=== PATIENT | male | born 1945 | race Caucasian/White ===

== ENCOUNTER → 2016-04-02 | Outpatient (CLI) | payer OTHER | LOC: BHFA 09:00 | PROVIDERS: ATTEND Internal Medicine Cardiovascular Disease | DX: I25.10 Atherosclerotic heart disease of native coronary artery without angina pectoris (principal); E78.5 Hyperlipidemia, unspecified | CPT/HCPCS: 78452; 93017; A9500 ==

== ENCOUNTER → 2016-08-29 | Outpatient (CLI) | payer OTHER | LOC: FIMAGING 09:52 | PROVIDERS: ATTEND Family Medicine | DX: R91.8 Other nonspecific abnormal finding of lung field (principal) ==

== ENCOUNTER → 2017-01-29 | Outpatient (CLI) | payer OTHER | LOC: FIMAGING 14:14 | PROVIDERS: ATTEND Family Medicine | DX: R93.8 Abnormal findings on diagnostic imaging of other specified body structures (principal) ==

== ENCOUNTER → 2017-08-18 | Outpatient (CLI) | payer OTHER ==
[~2017-08-18] MED LIST: IOPAMIDOL (ISOVUE-370) 150 ML BTL IV ONE
== END ==
LOC: FIMAGING 09:31
PROVIDERS: ATTEND Internal Medicine Cardiovascular Disease
DX: R94.39 Abnormal result of other cardiovascular function study (principal); I25.10 Atherosclerotic heart disease of native coronary artery without angina pectoris
CPT/HCPCS: 75574; Q9967

== ENCOUNTER 2017-09-21 07:34 | Inpatient (IN) | payer OTHER ==
[2017-09-21] MEDS ORDERED: FAMOTIDINE 20 MG TAB PO ONE (07:39)
[2017-09-21] MEDS ORDERED: ASPIRIN EC 325 MG TAB PO ONE (07:39)
[2017-09-21] MEDS ORDERED: DIAZEPAM 5 MG TAB PO ONE (07:39)
[2017-09-21] MEDS ORDERED: diphenhydrAMINE 25 MG CAP PO ONE (07:39)
[2017-09-21] MEDS ORDERED: NS 1,000 ML IV ONE (07:39)
--- NOTE | 2017-09-21 07:53 | CPEKG ---
Heart Rate: 49 RR Interval: 1224 P-R Interval: 180 QRSD Interval: 86 QT Interval: 452 QTC Interval: 409 P [place]: 38 QRS [place]: 3 T Wave [place]: 44 EKG Severity - OTHERWISE NORMAL ECG - EKG Impression: SINUS BRADYCARDIA Electronically Signed By: Isaak Levin 23-Sep-2017 07:27:06
[2017-09-21 08:05] LABS: PLATELET COUNT 219 10^3/uL (150-400)
[2017-09-21] MEDS ORDERED: fentaNYL 100 MCG/2 ML INJ ONE (08:19)
[2017-09-21] MEDS ORDERED: LIDOCAINE 1% 300 MG/30 ML SDV ONE (08:19)
[2017-09-21] MEDS ORDERED: VERAPAMIL 5 MG/2 ML VIAL ONE (08:20)
[2017-09-21] MEDS ORDERED: HEPARIN 10,000 UNIT/10 ML MDV (1,000 UNIT/ML) ONE (08:20)
[2017-09-21] MEDS ORDERED: IOPAMIDOL (ISOVUE-370) 150 ML BTL IV ONE (08:20)
[2017-09-21] MEDS ORDERED: MIDAZOLAM 2 MG/2 ML VIAL ONE (08:20)
[2017-09-21 08:27] LABS: INR 0.93 (0.83-1.16); PROTIME(PATIENT) 12.7 SEC (12.0-15.0)
--- NOTE | 2017-09-21 08:38 | PDPROPOC ---
Sedation Plan of Care Sedation Plan of Care: vital signs stable, mental status noted, patient educated of risks, benefits, alternatives, patient can tolerate sedation ASA Classification: ASA 2 Planned drugs: fentanyl, midazolam Mallampati Score: Class 1 Mallampati Reference Image: Patient passed 3-3-2 rule?: Yes
--- NOTE | 2017-09-21 08:38 | PDHPUP ---
History & Physical Update H&P update statement: This history and physical update is based on an assessment of the patient which was completed after admission or registration (within 24 hours), but prior to the surgery/procedure. H&P update: H&P reviewed & patient examined, no change in patient's condition since H&P completed
[2017-09-21] MEDS ORDERED: NITROGLYCERIN 0.4 MG BTL SL ONE (09:12)
[2017-09-21] MEDS ORDERED: NITROGLYCERIN 1,500 MCG/15 ML VIAL MISC ONE (09:20)
[2017-09-21] MEDS ORDERED: EPINEPHrine 1 MG/10 ML SYR IVP ONE (09:20)
[2017-09-21] MEDS ORDERED: LORazepam 2 MG/ML INJ IVP PRN (09:36)
--- NOTE | 2017-09-21 09:44 | PDDXCAT ---
Diagnostic Cath Note - . Date: 09/21/17 Termite Treater Helper: Rohith Indication: High-risk criteria on noninvasive testing (choose option below) High-risk criteria on non-invasive testing: severe exercise left ventricular dysfunction (exercise LVEF<35%) - Procedure Access: right wrist Procedure: left heart catheterization, coronary angiography, other (IVUS) - Materials Left Heart Cath size: 5F Left Heart Cath materials: JL4.0, pigtail, other (TIGER) - Findings-Left Heart Catheterization LM: 90% proximal slit like stenosis. LAD: diffuse 20% narrowing. No focal stenosis LCX: Diffuse mild calcific atheroma RCA: 20% Mid RCA. Dominant EDP: 15 mmhg LVEF: 60 Wall motion: normal Complications: transient occlusion of OM post Ultrasound Estimated blood loss: <50ml Closure method: TR Band Assessment: Critical LM disease with procedural occlusion of OM. Plan: Heparin. Cabg prior to discharge. Intervention: After review of the diagnostic angiogram left main stenosis was indeterminate in some views. Patient's ACT was confirmed greater than 200. Using a 5 [place] JL4 guiding catheter left main coronary selectively intubated. Using a 0.014 luge wire the left main was crossed and the wire placed in the distal obtuse marginal branch. Intravascular ultrasound was slow pullback was performed revealing a slit like stenosis of greater than 90% at the ostium of the left main. This is confirmed visually. After withdrawing the wire patient's ST segments elevated. Angiogram revealed JAMES grade 0 flow in the obtuse marginal branch. Patient had been administered a sublingual nitroglycerin sublingually. With withdrawal of the catheter from the left main ostium ST segments resolved. Left main was reengaged revealing JAMES grade 3 flow. Patient remained hemodynamically stable. Ventriculogram was performed. He is taken to recovery for continued care and surgical consultation. Conclusions critical slit like left main stenosis of greater than 90%. Patient Problems: Problems Problem Status Onset Coronary artery disease Acute
[2017-09-21] MEDS ORDERED: NS 1,000 ML IV SCH (09:45)
[2017-09-21] MEDS ORDERED: METOPROLOL SUCCINATE XR 25 MG TAB PO SCH (09:45)
[2017-09-21] MEDS ORDERED: ATORVASTATIN CALCIUM 40 MG TAB PO SCH ×2 (09:45→21:00)
--- NOTE | 2017-09-21 12:17 | GCON ---
[f rep st] CONSULTATION DATE OF CONSULTATION: 09/21/2017 REFERRING PHYSICIAN: Dr. Blancas REQUESTING PHYSICIAN: Dr. Newberry; with the patient's permission. IMPRESSION: 1. Balanced ischemia with severe left main and two-vessel disease with preserved left ventricular fu nction. 2. Mild chronic ethanol use. 3. Hyperlipidemia. 4. Nephrolithiasis. RECOMMENDATIONS: This gentleman had marked ST-segment changes during catheterization during injectio n of the circumflex; and, for that reason, given his tight ostial left main stenosis and lack of symp toms, he is being and admitted and placed on heparin for subsequent surgical intervention. Medical h istory is as stated above. I advised him that his risk for stroke, bleeding, infection, heart attack , and were all less than 1%. I did advise him I would likely use 2 internal mammary arteries a nd 1 piece of vein graft. Need for transfusion was around 5%, and risks associated with transfusion were reviewed at length. CHIEF COMPLAINT: 71-year-old gentleman who is quite active, but has a high calcium score of 13.43. He also has dyslipidemia. During his annual followup, he denied any symptoms. Noninvasive testing w as nondiagnostic without evidence of ischemia. However, due to concern for his high calcium score, d iagnostic left heart cath was encouraged. He underwent diagnostic cath today at which time the circu mflex became hypoperfused with marked ST-segment elevation. He is noted to have left main and proxim al LAD and circumflex disease. He was placed on heparin. The EKGs improved, and he was stabilized b eing admitted for urgent coronary artery revascularization. MEDICAL HISTORY: As stated. PREVIOUS SURGERIES: Include angiogram, colonoscopy, hamstring repair, and tooth implantation. MEDICATIONS ON ADMISSION: Aspirin, heparin, atorvastatin, fish oil, losartan, multivitamin, and saw palmetto oil. ALLERGIES: He has no known allergies. SOCIAL HISTORY: He drinks 1-2 glasses of wine per day on a regular basis. He has never had alcohol withdrawal or issues related to substance abuse. He does smoke occasional marijuana. He is . He has no children. He is a remote cigarette abuser. REVIEW OF SYSTEMS: At the present time, all 10 systems were interrogated and were unremarkable. PHYSICAL EXAMINATION: GENERAL: Well-developed, 71-year-old gentleman who appears markedly younger t rai stated age. He is accompanied by his . Very pleasant, well informed. HEENT: Normocephalic . PERRLA. EOMI. NECK: Without bruit, adenopathy or thyromegaly. HEART: Rate is regular without murmur. LUNGS: Clear. ABDOMEN: Soft, nontender. Bowel sounds are active. Femoral and pedal puls es are 2+. No edema. No varicosities. RECTAL AND GENITAL: Deferred. Please see chart for labs and details. /[id number]/MODL
--- NOTE | 2017-09-21 12:17 | CPEKG ---
Heart Rate: 34 RR Interval: 1765 P-R Interval: 184 QRSD Interval: 78 QT Interval: 504 QTC Interval: 379 P [place]: 35 QRS [place]: -1 T Wave [place]: 33 EKG Severity - OTHERWISE NORMAL ECG - EKG Impression: SINUS BRADYCARDIA Electronically Signed By: Isaak Levin 23-Sep-2017 07:27:12
--- NOTE | 2017-09-21 12:23 | ECHO ---
[email or web address] [address] Main: [phone] Fax: Transthoracic Echocardiogram Name: KARLI ADAMS MR#: [id number] Study Date: 09/21/2017 Study Time: 10:57 AM Date of : 1945 Age: 71 year(s) Height: 167.6 cm (66 in.) Weight: 74.39 kg (164 lb.) BSA: 1.84 m2 Gender: Male Examination: Echo Indication: CVC Image Quality: Contrast: Requested by: Galo Newberry BP: 89 mmHg/59 mmHg Heart Rate: Rhythm: Indication: CVC Procedure Staff Dynamometer Repairer: Caden Bonilla RDCS Reading Physician: Galo Newberry MD Requesting Provider: Conclusions: Normal study Measurements: Chambers Valvular Assessment AV/MV Valvular Assessment TV/PV Normal Normal Normal Name Value Range Name Value Range Name Value Range Ao Jasmine (MM): 3.1 cm (2.2 cm-3.7 AV Vmax: 1.17 m/s (1 m/s-1.7 PV Vmax: 0.94 m/s (0.6 m/s-0.9 cm) m/s) m/s) IVSd (2D): 0.8 cm (0.6 cm-1.1 AV maxP mmHg ( - ) PV PGmax: 4 mmHg ( - ) cm) LVOT Vmax: 0.90 m/s (0.7 m/s-1.1 LVDd (2D): 4.7 cm (4.2 cm-5.9 m/s) cm) MV E Vmax: 0.40 m/s ( - ) LVDs (2D): 2.7 cm (2.1 cm-4 MV A Vmax: 0.62 m/s ( - ) cm) MV E/A: 0.65 ( - ) LVPWd (2D): 1.1 cm (0.6 cm-1 cm) LVEF (2D): 74 (>=54 %) Continued Measurements: Chambers Valvular Assessment AV/MV Name Value Name Value LADs Lon.9 cm MV E' Septal: 0.08 m/s LA Area: 15.6 cm2 MV E/E' Septal: 5.20 LA Volume: 38 ml MV E/E' Lateral: 3.80 LA Volume Index: 20.7 ml/m2 Findings: Left Ventricle: Patient: KARLI ADAMS Study Date: 09/21/2017 Page 1 of 2 10:57 AM Normal size left ventricle. No LV hypertrophy. Normal global systolic LV function. EF is 74 %. No regional wall motion abnormality. Normal diastolic LV function. Right Ventricle: Normal size right ventricle. Normal RV function. Left Atrium: The left atrium is normal in size. Right Atrium: The right atrium is normal in size. Mitral Valve: The mitral valve is normal in appearance and function. Trivial mitral valve regurgitation. Aortic Valve: The aortic valve is normal in appearance and function. The aortic valve is tri-leaflet. Tricuspid Valve: The tricuspid valve is normal in appearance and function. Pulmonic Valve: The pulmonic valve is normal in appearance and function. Aorta: The aorta is normal. (No Signature Object) Patient: KARLI ADAMS Study Date: 09/21/2017 Page 2 of 2 10:57 AM [id number]
--- NOTE | 2017-09-21 15:59 | PDMN ---
Medical Necessity Medical necessity: Pt meets IP criteria per MD; est los >2 mn for eval/tx of critical LM disease w/procedural occlusion of OM s/p cardiac cath; admit for urgent surgical intervention & further monitoring; per procedure note & order
[2017-09-21] MEDS ORDERED: CHLORHEXIDINE GLUC HIBICLENS 118 ML BTL TP SCH (21:00)
[2017-09-21] MEDS ORDERED: LOSARTAN POTASSIUM 25 MG TAB PO SCH (21:00)
[2017-09-21] MEDS: ASPIRIN 81 MG CHEWABLE TAB PO SCH (21:20)
[2017-09-21] MEDS: SENNOSIDES/DOCUSATE SODIUM TAB PO SCH (21:20)
[2017-09-21] MEDS: MUPIROCIN 2% 22 GM OINT NS SCH (21:21)
[2017-09-22] MEDS ORDERED: niCARdipine/NACL 200 ML IV ONE (06:00)
[2017-09-22] MEDS ORDERED: INSULIN REGULAR HUMAN 100 UNIT in NS 100 ML IV ONE (06:00)
[2017-09-22] MEDS ORDERED: PHENYLEPHRINE HCL 50 MG in NS 250 ML IV ONE (06:00)
[2017-09-22] MEDS ORDERED: ceFAZolin 2 GM/DEXTROSE 100 ML IV ONE (06:00)
[2017-09-22] MEDS ORDERED: MANNITOL 25% 12.5 GM/50 ML VIAL IVP ONE (06:00)
[2017-09-22] MEDS ORDERED: SODIUM BICARBONATE 20 MEQ, LIDOCAINE 1% 10 ML in NORMOSOL-R 1,000 ML MISC ONE (06:00)
[2017-09-22] MEDS ORDERED: AMINOCAPROIC ACID 5 GM/20 ML VIAL IV ONE (06:00)
[2017-09-22] MEDS ORDERED: CITRATE DEXTROSE SOLN 500 ML BAG MISC ONE (06:00)
[2017-09-22] MEDS ORDERED: VERAPAMIL 5 MG, NITROGLYCERIN 2.5 MG, HEPARIN 500 UNIT, SODIUM BICARBONATE 0.2 MEQ in L... MISC ONE (06:00)
[2017-09-22] MEDS ORDERED: NOREPINEPHRINE BITARTRATE 16 MG in NS 250 ML IV ONE (06:00)
--- NOTE | 2017-09-22 08:54 | CPEKG ---
Heart Rate: 47 RR Interval: 1277 P-R Interval: 200 QRSD Interval: 78 QT Interval: 464 QTC Interval: 411 P [place]: 49 QRS [place]: -2 T Wave [place]: 32 EKG Severity - OTHERWISE NORMAL ECG - EKG Impression: SINUS BRADYCARDIA Electronically Signed By: Isaak Reynoso 24-Sep-2017 08:16:25
[2017-09-22] MEDS ORDERED: ASPIRIN EC 81 MG TAB PO SCH (09:00)
--- NOTE | 2017-09-22 09:58 | SOAPPROG ---
SOAP Progress Note Assessment/Plan: Assessment: Problem list: 1. Severe coronary disease with left main stenosis. Patient angina free overnight with stable hemodynamics. Slight elevation in troponin consistent with no reflow in the obtuse marginal branch during diagnostic angiogram. Preserved LV systolic function by echocardiogram post procedure. Bypass surgery today. 09/22/17 09:56 Subjective: Uneventful night. No chest pain, shortness of breath, PND, orthopnea. Objective: Vital Signs Temp Pulse Resp BP Pulse Ox 36.6 C 44 L 18 110/74 93 09/22/17 07:58 09/22/17 07:58 09/22/17 07:58 09/22/17 07:58 09/22/17 07:58 Laboratory Results 09/21/17 07:58 09/21/17 07:58 09/21/17 09/22/17 09/23/17 05:59 05:59 05:59 Intake Total 100 Balance 100 PT 12.7 SEC (12.0-15.0) 09/21/17 07:58 INR 0.93 (0.83-1.16) 09/21/17 07:58 Laboratory Tests 09/21/17 09/21/17 09/21/17 09:52 13:35 16:24 Troponin I < 0.012 0.061 H 0.048 H 09/21/17 09/22/17 19:28 03:16 Troponin I 0.042 H 0.049 H Physical Exam - Physical Exam General Appearance: alert, no apparent distress EENT: PERRL/EOMI Neck: non-tender, full range of motion Respiratory: chest non-tender, lungs clear Cardiac/Chest: normal peripheral pulses, regular rate, rhythm, No edema, No gallop, No JVD Peripheral Pulses: 1+: carotid (R), carotid (L), femoral (R), femoral (L) Abdomen: normal bowel sounds, non-tender, soft Back: Normal inspection Skin: warm/dry ICD10 Worksheet Patient Problems: Problems Problem Status Onset Coronary artery disease Acute Review of Systems - Review of Systems Constitutional: no symptoms reported EENTM: no symptoms reported Respiratory: no symptoms reported Cardiac: no symptoms reported Gastrointestinal/Abdominal: no symptoms reported Genitourinary: no symptoms Musculoskelatal: no symptoms Skin: no symptoms Neurological: no symptoms Hematologic/Lymphatic: no symptoms reported Immunologic/allergic: no symptoms reported All Other Systems: Reviewed and Negative
[2017-09-22] MEDS ORDERED: PROTAMINE SULFATE 50 MG/5 ML VIAL IVP ONE (10:14)
[2017-09-22] MEDS ORDERED: MILRINONE/DEXTROSE/100 ML BAG IV ONE (10:15)
[2017-09-22] MEDS ORDERED: ALBUMIN 5% 250 ML BOTTLE IV ONE (10:15)
[2017-09-22] MEDS ORDERED: CALCIUM CHLORIDE 1 GM/10 ML INJ ONE (10:15)
[2017-09-22] MEDS ORDERED: NA BICARBONATE 50 MEQ/50 ML VIAL ONE (10:16)
[2017-09-22] MEDS ORDERED: LIDOCAINE 2% 100 MG/5 ML SYR ONE (10:16)
[2017-09-22] MEDS ORDERED: DOPamine/DEXTROSE 400 MG/250 ML BAG IV ONE (10:17)
[2017-09-22] MEDS ORDERED: CITRATE DEXTROSE SOLN 500 ML BAG ONE (10:17)
[2017-09-22] MEDS ORDERED: HEPARIN 10,000 UNIT/10 ML MDV (1,000 UNIT/ML) ONE (10:17)
[2017-09-22] MEDS ORDERED: niCARdipine/NACL/200 ML BAG IV ONE (10:17)
[2017-09-22] MEDS ORDERED: ADENOSINE 6 MG/2 ML VIAL ONE (10:18)
[2017-09-22] MEDS ORDERED: ceFAZolin 1 GM VIAL ONE (10:18)
[2017-09-22] MEDS ORDERED: MAGNESIUM SULFATE 1 GM/2 ML VIAL ONE (10:18)
[2017-09-22] MEDS ORDERED: NITROGLYCERIN/D5W 50 MG/250 ML BOTTLE IV ONE (10:18)
[2017-09-22] MEDS ORDERED: AMIODARONE HCL 150 MG/3 ML VIAL ONE (10:18)
[2017-09-22] MEDS ORDERED: methylPREDNISolone SOD SUCC 1 GM/8 ML VIAL ONE (10:18)
[2017-09-22] MEDS ORDERED: PAPAVERINE HCL 60 MG/2 ML SDV ONE (10:19)
[2017-09-22] MEDS ORDERED: VERAPAMIL 5 MG/2 ML VIAL ONE (10:19)
[2017-09-22] MEDS ORDERED: MINERAL OIL 10 ML VIAL ONE (10:19)
--- NOTE | 2017-09-22 10:45 | ASMTCASEMG ---
Living Arrangements What is your living Answers: With Spouse arrangement? Who do you live with? Type Of Residence What kind of residence do Answers: House you live in? 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 Pt will have bypass surgery today. Pt will most likely d/c with outpatient cardiac rehab. No therapies ordered at this time. CM available for changes. Plan: Independent Date Signed: 09/22/2017 10:44 AM Electronically Signed By:JOSIANE Dolan
[2017-09-22] MEDS ORDERED: LR 1,000 ML IV ONE (12:18)
[2017-09-22] MEDS ORDERED: CEFAZOLIN 2 GM/DEXTROSE/100 ML BAG IV ONE (12:28)
--- NOTE | 2017-09-22 12:54 | PDANEPAE ---
ANE History of Present Illness cab ANE Past Medical History - Cardiovascular History Hx Hypertension: No Hx Arrhythmias: No Hx Chest Pain: No Hx Coronary Artery / Peripheral Vascular Disease: Yes Hx CHF / Valvular Disease: No Hx Palpitations: No - Pulmonary History Hx COPD: No Hx Asthma/Reactive Airway Disease: No Hx Recent Upper Respiratory Infection: No Hx Oxygen in Use at Home: No Hx Sleep Apnea: No Sleep Apnea Screening Result - Last Documented: Positive - Neurologic History Hx Cerebrovascular Accident: No Hx Seizures: No Hx Dementia: No - Endocrine History Hx Diabetes: No Hypothyroid: No Hyperthyroid: No - Renal History Hx Renal Disorders: No Renal History Comment: nephrolithiasis x1 - Liver History Hx Hepatic Disorders: No - Neurological & Psychiatric Hx Hx Neurological and Psychiatric Disorders: No - Cancer History Hx Cancer: No - Congenital Disorder History Hx Congenital Disorders: No - GI History GERD: no Hx Gastrointestinal Disorders: No - Chronic Pain History Chronic Pain: No - Surgical History Prior Surgeries: None ANE Review of Systems Review of systems is: negative Review of Systems: ANE Patient History - Allergies Allergies/Adverse Reactions: No Allergies [NKDA] Allergy (Verified 10/26/14 15:32) - Home Medications Home medications: home medication list seen and reviewed Home Medications: Aspirin [Aspirin 81mg (*)] 81 mg PO HS 09/14/17 [Last Taken Unknown] Atorvastatin Calcium [Lipitor 40 mg (*)] 80 mg PO DAILY 09/14/17 [Last Taken Unknown] Herbals/Supplements -Info Only 1 ea PO DAILY 09/14/17 [Last Taken Unknown] Losartan Potassium [Cozaar 25 mg (*)] 25 mg PO HS 09/14/17 [Last Taken Unknown] Multivitamins [Multivitamin (*)] 1 each PO DAILY 09/14/17 [Last Taken Unknown] [place]-3 Fatty Acids [Fish Oil 1000 mg (*)] 1,000 mg PO DAILY 09/14/17 [Last Taken Unknown] - NPO status NPO Status: no food or drink >8 hours NPO Since - Liquids (Date): 09/21/17 NPO Since - Liquids (Time): 23:45 NPO Since - Solids (Date): 09/21/17 NPO Since - Solids (Time): 23:45 - Smoking Hx Smoking Status: Former smoker ANE Labs/Vital Signs - Labs Result Diagrams: 09/21/17 07:58 09/21/17 07:58 - Vital Signs Blood Pressure: 128/73 Heart Rate: 38 Respiratory Rate: 16 O2 Sat (%): 95 Height: 170 cm Weight: 76.6 kg ANE Physical Exam - Airway Mallampati Score: Class 2 Mouth exam: normal dental/mouth exam - Pulmonary Pulmonary: no respiratory distress - Cardiovascular Cardiovascular: regular rate and rhythym - ASA Status ASA Status: III ANE Anesthesia Plan Anesthesia Plan: general endotracheal anesthesia Lines/Monitors: arterial line, central line, CEDRICK
[2017-09-22] MEDS: MUPIROCIN 2% 22 GM OINT NS SCH ×2 (12:58→21:56)
[2017-09-22] MEDS ORDERED: MIDAZOLAM 2 MG/2 ML VIAL IVP ONE (13:03)
[2017-09-22] MEDS ORDERED: fentaNYL 250 MCG/5 ML INJ ONE ×2 (13:16)
[2017-09-22] MEDS ORDERED: PROPOFOL 200 MG/20 ML VIAL ONE (13:18)
[2017-09-22] MEDS ORDERED: LIDOCAINE 2% 5 ML SDV ONE (13:19)
[2017-09-22] MEDS ORDERED: ROCURONIUM 100 MG/10 ML VIAL ONE (13:21)
[2017-09-22] MEDS ORDERED: LABETALOL HCL 5 MG/ML 20 ML MDV ONE (13:24)
[2017-09-22] MEDS ORDERED: MIDAZOLAM 2 MG/2 ML VIAL ONE ×2 (13:27→14:12)
[2017-09-22] MEDS ORDERED: SUCCINYLCHOLINE CHLORIDE 200 MG/10 ML SYR IVP ONE (14:07)
[2017-09-22] MEDS ORDERED: GLYCOPYRROLATE 0.2 MG/1 ML VIAL ONE ×2 (14:21)
[2017-09-22] MEDS ORDERED: DEXMEDETOMIDINE IN 0.9 % NACL 100 ML IV ONE (17:30)
[2017-09-22] MEDS ORDERED: SUGAMMADEX SODIUM 200 MG/2 ML VIAL IVP ONE (17:38)
[2017-09-22] MEDS ORDERED: LACTULOSE 20 GM/30 ML UDCUP PO PRN (17:55)
[2017-09-22] MEDS ORDERED: SODIUM CL NASAL 45 ML BTL EACHNARE PRN (17:55)
[2017-09-22] MEDS ORDERED: BISACODYL 10 MG SUPP PR PRN (17:55)
[2017-09-22] MEDS ORDERED: METOCLOPRAMIDE 10 MG/2 ML VIAL IVP PRN (17:55)
[2017-09-22] MEDS ORDERED: D50W 25 GM/50 ML SYR IVP PRN (17:55)
[2017-09-22] MEDS ORDERED: ACETAMINOPHEN 325 MG TAB PO PRN (17:55)
[2017-09-22] MEDS ORDERED: ONDANSETRON DISINTEGRATING 4 MG TAB PO PRN (17:55)
[2017-09-22] MEDS ORDERED: PANTOPRAZOLE SODIUM 40 MG VIAL IVP ONE (17:55)
[2017-09-22] MEDS ORDERED: CEPACOL LOZENGE PO PRN (17:55)
[2017-09-22] MEDS ORDERED: MAGNESIUM HYDROXIDE 30 ML UDCUP PO PRN (17:55)
[2017-09-22] MEDS ORDERED: ACETAMINOPHEN 650 MG SUPP PR PRN (17:55)
[2017-09-22] MEDS ORDERED: POLYETHYLENE GLYCOL 3350 17 GM PKT PO PRN (17:55)
[2017-09-22] MEDS ORDERED: MEPERIDINE 25 MG/0.5 ML AMP IVP PRN (17:55)
[2017-09-22] MEDS ORDERED: POTASSIUM Cl (KCl) 50 ML IV PRN (17:55)
[2017-09-22] MEDS ORDERED: INSULIN REGULAR HUMAN 100 UNIT in NS 100 ML IV SCH (18:00)
[2017-09-22] MEDS ORDERED: NS 1,000 ML IV SCH (18:00)
[2017-09-22] MEDS ORDERED: NALOXONE HCL 0.4 MG/ML INJ IVP PRN (18:16)
--- NOTE | 2017-09-22 18:17 | POSTANESTH ---
Post Anesthetic Evaluation Cardiovascular Status: Normal, Stable Respiratory Status: Normal, Stable Level of Consciousness/Mental Status: Can Participate in Eval Pain Control: Adequate, Prn Tx Ordered Nausea/Vomiting Control: Adequate, Prn Tx Ordered Complications Possibly Related to Anesthesia: None Noted
--- NOTE | 2017-09-22 18:21 | CPEKG ---
Heart Rate: 69 RR Interval: 870 P-R Interval: 172 QRSD Interval: 84 QT Interval: 444 QTC Interval: 476 P [place]: 58 QRS [place]: 36 T Wave [place]: 31 EKG Severity - ABNORMAL ECG - EKG Impression: SINUS RHYTHM EKG Impression: LOW VOLTAGE IN FRONTAL LEADS EKG Impression: PROBABLE POSTERIOR INFARCT EKG Impression: BORDERLINE PROLONGED QT INTERVAL Electronically Signed By: Isaak Reynoso 24-Sep-2017 08:15:59
--- NOTE | 2017-09-22 18:27 | GOP ---
[f rep st] OPERATIVE REPORT DATE OF OPERATION: 09/22/2017 SURGEON: Dinesh Andrews DO INTERPRETER AND TRANSLATOR: Ajay. ANESTHESIA: [place]. PREOPERATIVE DIAGNOSIS: Arteriosclerotic heart disease with left main stenosis. POSTOPERATIVE DIAGNOSIS: Arteriosclerotic heart disease with left main stenosis. PROCEDURE PERFORMED: 1. Coronary artery bypass grafting x2 with left internal mammary artery to the mid left anterior manolo cending. 2. Saphenous vein graft with patch enlargement and extended arteriotomy of the circumflex for repair of dissection. FINDINGS: Patient had a temporary occlusion of his circumflex during catheterization in the catheter ization lab with subsequent reperfusion without noted injury. He was kept overnight in the hospital because of ostial left main stenosis and lack of symptoms. He underwent coronary artery revasculariz ation and was consented the following morning. DESCRIPTION OF PROCEDURE: He was brought to the operating room, intubated, and monitoring lines were prepped and draped in sterile classical manner. Sternotomy was performed. The mammary and vein wer e harvested endoscopically. He was heparinized, cannulated. Bypass was begun. A cardioplegic arres t was obtained with antegrade cardioplegia, topical hypothermia, and systemic cooling. Initially, th e circumflex was identified. It was a large vessel measuring 2.6 mm and in the proximal 3rd where it was opened. It then became evident that there was a dissection flap which appeared to spiral for a ways, a centimeter or so, more distally. I then opened the vessel the entire duration of that presum ed dissection and was able to identify the appropriate lumen and reapproximated vein graft, maintaini ng patency, reattaching the intima to the media along the way for approximately 2 cm with vein. This was reinforced at the heel. The proximal anastomosis was then brought off the ascending aorta. We then grafted a good quality mammary to the LAD in the proximal 3rd with no difficulty. It was tacked to the epicardium. The cross-clamp was removed with suction on the ascending aortic vent. Spontane ous cardiac activity was noted to resume. The patient was rewarmed. EKG remained normal. Heparin w as reversed with protamine. The cannula was removed and oversewn. Two ventricular pacing wires, 1 m ediastinal and 1 left drain were placed. The thymic fat and pericardium were closed. Chest was clos ed in standard fashion. The patient was returned to ICU in stable condition. /[id number]/MODL
[2017-09-22] MEDS: SENNOSIDES/DOCUSATE SODIUM TAB PO SCH ×2 (18:38→21:57)
[2017-09-22] MEDS: ALBUMIN 5% 250 ML IV PRN ×2 (19:09→21:54)
[2017-09-22] MEDS: fentaNYL 100 MCG/2 ML INJ IVP PRN ×4 (19:51→22:42)
[2017-09-22] MEDS: ASPIRIN 81 MG CHEWABLE TAB PO SCH (21:56)
[2017-09-22] MEDS: ceFAZolin 2 GM/DEXTROSE 100 ML IV SCH (22:02)
[2017-09-22] MEDS: ONDANSETRON 4 MG/2 ML VIAL IVP PRN (22:46)
[2017-09-22] MEDS: HYDROCODONE/APAP 5/325 TAB PO PRN (23:51)
[2017-09-23] MEDS: fentaNYL 100 MCG/2 ML INJ IVP PRN ×3 (01:07→03:01)
[2017-09-23] MEDS: HYDROCODONE/APAP 5/325 TAB PO PRN ×4 (03:58→17:33)
[2017-09-23 04:47] LABS: PLATELET COUNT 141 10^3/uL (150-400)
--- NOTE | 2017-09-23 06:40 | SOAPPROG ---
SOAP Progress Note Assessment/Plan: POD #1: Urgent CABGx2 (TAMAYO-LAD, SVG-Circ), patch enlargement and extended arteriotomy of circumflex, EVH left thigh CAD/left main CAD/dissected circumflex artery s/p CABGx2 - Transfer to PCU - BB/ASA/Statin when appropriate Acute blood loss anemia - No transfusions needed DVT prophylaxis - SCDs/heparin SQ Subjective: Pain well-controlled, denies SOB. Objective: Vital Signs Temp Pulse Resp BP Pulse Ox 36.8 C 58 L 22 H 114/53 L 95 09/23/17 04:00 09/23/17 06:00 09/23/17 06:00 09/23/17 06:00 09/23/17 06:00 Laboratory Results 09/23/17 03:50 09/23/17 03:50 09/22/17 09/23/17 09/24/17 05:59 05:59 05:59 Intake Total 100 1379 Output Total 1600 Balance 100 -221 PT 12.7 SEC (12.0-15.0) 09/21/17 07:58 INR 0.93 (0.83-1.16) 09/21/17 07:58 Physical Exam - Physical Exam General Appearance: WD/WN, alert, no apparent distress EENT: No scleral icterus (R), No scleral icterus (L) Neck: normal inspection Respiratory: No respiratory distress Cardiac/Chest: regular rate, rhythm Abdomen: non-tender, soft, No distended Skin: normal color, warm/dry Extremities: No pedal edema Neuro/Psych: no motor/sensory deficits, alert, normal mood/affect, oriented x 3 ICD10 Worksheet Patient Problems: Problems Problem Status Onset Acute blood loss anemia Acute Coronary artery disease Acute S/P CABG x 2 Acute
[2017-09-23] MEDS: HEPARIN 5,000 UNIT/0.5 ML INJ SC SCH ×3 (06:42→21:14)
[2017-09-23] MEDS: ceFAZolin 2 GM/DEXTROSE 100 ML IV SCH ×3 (06:42→21:14)
[2017-09-23] MEDS: ONDANSETRON 4 MG/2 ML VIAL IVP PRN (08:58)
[2017-09-23] MEDS: MUPIROCIN 2% 22 GM OINT NS SCH ×2 (09:06→21:15)
[2017-09-23] MEDS: SENNOSIDES/DOCUSATE SODIUM TAB PO SCH ×3 (09:10→21:13)
[2017-09-23] MEDS: ASPIRIN 81 MG CHEWABLE TAB PO SCH (21:34)
[2017-09-23] MEDS: traMADol 50 MG TAB PO PRN (22:36)
[2017-09-24] MEDS: HYDROCODONE/APAP 5/325 TAB PO PRN ×4 (00:42→13:05)
[2017-09-24] MEDS: ceFAZolin 2 GM/DEXTROSE 100 ML IV SCH (05:00)
[2017-09-24] MEDS: HEPARIN 5,000 UNIT/0.5 ML INJ SC SCH ×3 (05:00→21:19)
[2017-09-24 05:06] LABS: PLATELET COUNT 146 10^3/uL (150-400)
--- NOTE | 2017-09-24 06:50 | SOAPPROG ---
SOAP Progress Note Assessment/Plan: Assessment: POD#2 Urgent CABGx2 (TAMAYO-LAD, SVG-Circ), patch enlargement and extended arteriotomy of circumflex, EVH left thigh Sx CAD w preserved LV systolic fx - Critical left main stenosis with procedural occlusion of OM. LCX dissection apparent intraop and repaired with extended venotomy and vein patch. Extubated in the OR. Stable early postop course. Secondary prevention with ASA, BB as allowed by BP, and statin when eating well. Acute expected blood loss anemia - Stable. No transfusions needed. DVT prophylaxis w SCDs/heparin SQ. Plan: Remove TCPW. Consider CT removal later today. Begin gentle diuresis. Start metoprolol tartrate 12.5 mg BID tonight if holding HR > 70. Inc activity as tolerated. Dispo - Anticipate home without services in 2 days. 09/24/17 06:50 Subjective: Sore after prolonged coughing spell last night. Now nervous about IS. Slightly more dyspneic when reclined. Objective: Vital Signs Temp Pulse Resp BP Pulse Ox 36.9 C 79 16 112/72 95 09/24/17 04:00 09/24/17 04:00 09/24/17 04:00 09/24/17 04:00 09/24/17 04:00 Laboratory Results 09/24/17 04:50 09/24/17 04:50 09/23/17 09/24/17 09/25/17 05:59 05:59 05:59 Intake Total 1379 2128.1 Output Total 1600 807 Balance -221 1321.1 PT 12.7 SEC (12.0-15.0) 09/21/17 07:58 INR 0.93 (0.83-1.16) 09/21/17 07:58 HR steadily increasing. Now 70s-80s. STs remain slightly elev. Min suppl O2 req. Dissipating CTOP. Positive fluid balance. +2.5 kg overall. Labs as expected. Physical Exam - Physical Exam General Appearance: alert, no apparent distress Respiratory: crackles (bases), other (blakes x 2 to bulb suction, serosang drainage) Cardiac/Chest: regular rate, rhythm, other (Sternotomy CDI. Vwires intact.) Abdomen: non-tender, soft Skin: warm/dry Extremities: swelling (trace - 1+ dependent), other (LLE venotomy CDI) ICD10 Worksheet Patient Problems: Problems Problem Status Onset Acute blood loss anemia Acute Coronary artery disease Acute S/P CABG x 2 Acute chronic disease mgmt/transitional care Acute
[2017-09-24] MEDS ORDERED: FUROSEMIDE 20 MG/2 ML VIAL IVP ONE (09:00)
[2017-09-24] MEDS: MUPIROCIN 2% 22 GM OINT NS SCH (10:19)
[2017-09-24] MEDS: PANTOPRAZOLE SODIUM 40 MG TAB PO SCH (10:20)
[2017-09-24] MEDS: SENNOSIDES/DOCUSATE SODIUM TAB PO SCH ×2 (10:20→21:16)
--- NOTE | 2017-09-24 11:59 | ASMTCMCOM ---
CM Note CM Note Notes: 09/24/2017 Case Management Note Pt is post op day #2 recovering from a CABG. PT is recommending cardiac outpatient rehab. There are no other identified case management d/c needs. Case Management d/c poc: home with cardiac outpatient rehab. Case Management available if needs change. Date Signed: 09/24/2017 11:58 AM Electronically Signed By:Poornima Guo RN
[2017-09-24] MEDS: traMADol 50 MG TAB PO PRN (15:05)
[2017-09-24] MEDS: ASPIRIN 81 MG CHEWABLE TAB PO SCH (21:16)
[2017-09-24] MEDS: METOPROLOL TARTRATE 25 MG TAB PO SCH (21:18)
[2017-09-25] MEDS: HEPARIN 5,000 UNIT/0.5 ML INJ SC SCH ×3 (05:35→20:37)
--- NOTE | 2017-09-25 06:54 | SOAPPROG ---
SOAP Progress Note Assessment/Plan: POD #3: Urgent CABGx2 (TAMAYO-LAD, SVG-Circ), patch enlargement and extended arteriotomy of circumflex, EVH left thigh CAD/left main CAD/dissected circumflex artery s/p CABGx2 - Transfer to PCU - BB/ASA/Statin when appropriate Acute blood loss anemia - No transfusions needed DVT prophylaxis - SCDs/heparin SQ Disposition - Home Thursday without services Subjective: Feels well. Denies CP/SOB. Objective: Vital Signs Temp Pulse Resp BP Pulse Ox 37.2 C 69 16 114/68 93 09/25/17 05:40 09/25/17 05:40 09/25/17 05:40 09/25/17 05:40 09/25/17 05:40 Laboratory Results 09/24/17 04:50 09/25/17 05:15 09/24/17 09/25/17 09/26/17 05:59 05:59 05:59 Intake Total 2128.1 1340 Output Total 807 2095 Balance 1321.1 -755 PT 12.7 SEC (12.0-15.0) 09/21/17 07:58 INR 0.93 (0.83-1.16) 09/21/17 07:58 Physical Exam - Physical Exam General Appearance: WD/WN, alert, no apparent distress EENT: No scleral icterus (R), No scleral icterus (L) Neck: normal inspection Respiratory: No respiratory distress Cardiac/Chest: regular rate, rhythm Abdomen: non-tender, soft, No distended Skin: normal color, warm/dry Extremities: pedal edema Neuro/Psych: no motor/sensory deficits, alert, normal mood/affect, oriented x 3 ICD10 Worksheet Patient Problems: Problems Problem Status Onset Acute blood loss anemia Acute Coronary artery disease Acute S/P CABG x 2 Acute chronic disease mgmt/transitional care Acute
[2017-09-25] MEDS ORDERED: FUROSEMIDE 20 MG/2 ML VIAL IVP ONE (07:26)
[2017-09-25] MEDS: PANTOPRAZOLE SODIUM 40 MG TAB PO SCH (09:39)
[2017-09-25] MEDS: METOPROLOL TARTRATE 25 MG TAB PO SCH ×2 (09:40→20:36)
[2017-09-25] MEDS: ATORVASTATIN CALCIUM 40 MG TAB PO SCH (09:42)
--- NOTE | 2017-09-25 12:06 | ASMTCMCOM ---
CM Note CM Note Notes: 09/25/2017 Case Management Note Post op day #3. Discussed case with Dr. Andrews. D/C possible tomorrow. Case Management d/c poc: Pt to d/c home with family support and start cardiac outpatient rehab. Case Management to follow. Date Signed: 09/25/2017 12:05 PM Electronically Signed By:Poornima Guo RN
[2017-09-25] MEDS: SENNOSIDES/DOCUSATE SODIUM TAB PO SCH (13:02)
[2017-09-25] MEDS ORDERED: AMIODARONE A.FIB-6HR INFSN (ORDER 2/3) PREMIX IV ONE (16:00)
[2017-09-25] MEDS ORDERED: AMIODARONE A.FIB-LOAD DOSE(ORDER 1/3) PREMIX IV ONE (16:00)
[2017-09-25] MEDS: traMADol 50 MG TAB PO PRN (20:36)
[2017-09-25] MEDS: ASPIRIN 81 MG CHEWABLE TAB PO SCH (20:37)
[2017-09-25] MEDS ORDERED: SENNOSIDES/DOCUSATE SODIUM TAB PO PRN (21:00)
[2017-09-25] MEDS ORDERED: AMIODARONE A.FIB-18HR INFSN (ORDER 3/3) IV ONE (22:00)
[2017-09-26] MEDS: HEPARIN 5,000 UNIT/0.5 ML INJ SC SCH (04:28)
[2017-09-26] MEDS: ATORVASTATIN CALCIUM 40 MG TAB PO SCH (08:06)
[2017-09-26] MEDS: PANTOPRAZOLE SODIUM 40 MG TAB PO SCH (08:06)
[2017-09-26] MEDS: METOPROLOL TARTRATE 25 MG TAB PO SCH (09:43)
--- NOTE | 2017-09-26 11:24 | SOAPPROG ---
SOAP Progress Note Assessment/Plan: POD #4: Urgent CABGx2 (TAMAYO-LAD, SVG-Circ), patch enlargement and extended arteriotomy of circumflex, EVH left thigh CAD/left main CAD/dissected circumflex artery s/p CABGx2 - On ASA, Lipitor and Metoprolol. Postop paroxysmal atrial fibrillation - Resolved. Currently in SR 60's. On Metoprolol. - Initiated Amio 200mg BID and Eliquis x 30 days. Acute blood loss anemia - No transfusions needed Postop hypervolemia - Will discharge on low dose Lasix today. - Instructed patient to take additional Lasix if he gains >5lb over two days while at home. DVT prophylaxis - SCDs/heparin SQ Disposition - Home today Subjective: Patient reports hardly having any pain. He has some mild discomfort under right rib area. Objective: Vital Signs Temp Pulse Resp BP Pulse Ox 36.9 C 76 18 106/65 96 09/26/17 11:14 09/26/17 11:14 09/26/17 11:14 09/26/17 11:14 09/26/17 11:14 Laboratory Results 09/24/17 04:50 09/26/17 04:15 09/25/17 09/26/17 09/27/17 05:59 05:59 05:59 Intake Total 1340 1010 Output Total 2095 5 200 Balance -755 -1035 -200 PT 12.7 SEC (12.0-15.0) 09/21/17 07:58 INR 0.93 (0.83-1.16) 09/21/17 07:58 Physical Exam - Physical Exam General Appearance: WD/WN, alert, no apparent distress Neck: supple Respiratory: lungs clear, decreased breath sounds (L>R), other (No wheezing, rhochi, rales. ) Cardiac/Chest: regular rate, rhythm (No murmurs, rubs, gallops. Sternum stable. Sternotomy c/d/i. ) Abdomen: normal bowel sounds, non-tender, soft Skin: normal color, warm/dry Extremities: other (Warm, mild lower extremity edema) Neuro/Psych: alert, normal mood/affect, oriented x 3 ICD10 Worksheet Patient Problems: Problems Problem Status Onset Acute blood loss anemia Acute Coronary artery disease Acute S/P CABG x 2 Acute chronic disease mgmt/transitional care Acute
[2017-09-26] MEDS ORDERED: APIXABAN 5 MG TAB PO SCH (11:30)
[2017-09-26] MEDS ORDERED: POTASSIUM CL 10 MEQ TAB PO SCH (11:30)
[2017-09-26] MEDS ORDERED: AMIODARONE HCL 200 MG TAB PO SCH (11:30)
[2017-09-26] MEDS ORDERED: FUROSEMIDE 20 MG TAB PO SCH (11:30)
--- NOTE | 2017-09-26 12:21 | PDHOMEO2F ---
Home Oxygen Face to Face Home Orders: I certify that a physician or a nurse practitioner or physician's veterinary assistant technician has had a [id number] encounter with this patient on the date of this order due to the diagnosis listed, which relates to the primary reason the patient requires home oxygen. Alternative treatments have been tried, or considered, and deemed ineffective. It is anticipated that supplemental oxygen will result in improvement with treatment. Home oxygen qualifying diagnosis: respiratory insufficiency Home oxygen secondary diagnosis: atrial fibrillation SpO2 on room air (%): 87 Frequency of home oxygen needed: continuous Home oxygen liters per minute: 1 Home oxygen delivery device: nasal cannula Concentrator: Yes E-tanks for mobility and back up: Yes If ordering portable O2, is the patient mobile in the home?: Yes I certify that, based on these findings, the home oxygen is medically necessary for this patient for the following length of time. Length of time home oxygen needed: 99 years
--- NOTE | 2017-09-26 14:39 | ASMTLACE ---
LACE Length of stay for Answers: 4-6 days current admission Acuity / Level of Answers: Yes Care: Did the patient have an inpatient admission? Comorbidities - select Answers: Coronary Artery Disease all that apply # of Emergency department Answers: 0 visits in the last 6 months Score: 9 Date Signed: 09/26/2017 02:38 PM Electronically Signed By:Parul Cummings LCSW
[2017-09-26 15:48] VITALS: BP 114/71
--- NOTE | 2017-09-26 16:30 | PDDCSUM ---
Discharge Summary Discharge Summary: Patient Name: Isaak Joshua Patient Admission Date: 09/21/2017 Discharge Date: 09/26/2017 Attending Physician: Dinesh Andrews DO Dictated by: Talya Lozada PA-C Condition on Discharge: Stable Discharge Diagnosis: Severe CAD s/p CABG Acute blood loss anemia Dyslipidemia Procedures: 09/22/2017 (Darryl) Urgent CABGx2 (TAMAYO-LAD, SVG-Circ), patch enlargement and extended arteriotomy of circumflex, EVH left thigh HPI: This is a 71yo male with dyslipidemia and high calcium scoring who who was referred for left heart cardiac catheterization Patient developed significant ST-segment changes during catheterization while injecting the circumflex. Patient was also found to have a tight ostial left main stenosis and proximal LAD and circumflex disease, for which he was admitted and placed on Heparin. Patient was referred to CT Surgery for CABG evaluation. Laboratory/Data: Findings- Left Heart Catheterization LM: 90% proximal slit like stenosis LAD: diffuse 20% narrowing. No focal stenosis. LCx: Diffuse mild calcific atheroma RCA: 20% mild RCA. Dominant. EDP: 15 mmHg LVEF 60% Assessment: Critical LM disease with procedural occlusion of OM. 09/24/17 04:50 09/26/17 04:15 Patient ABO/Rh A NEGATIVE 09/21/17 13:35 Hospital Course by Problem List: CAD/left main CAD/dissected circumflex artery s/p CABGx2 - On ASA, Lipitor and Metoprolol. Postop paroxysmal atrial fibrillation - Resolved. Currently in SR 60's. On Metoprolol. - Initiated Amio 200mg BID and Eliquis x 30 days. Acute blood loss anemia - No transfusions needed Postop hypervolemia - Discharged on low dose Lasix - Instructed patient to take additional Lasix if he gains >5lb over two days while at home. DVT prophylaxis - SCDs/heparin SQ Discharge Medications: Aspirin [Aspirin 81mg (*)] 81 mg PO HS 09/14/17 [Last Taken Unknown] Atorvastatin Calcium [Lipitor 40 mg (*)] 80 mg PO DAILY 09/14/17 [Last Taken Unknown] Amiodarone HCl [Pacerone (*)] 200 mg PO BID 14 Days #45 tab 09/26/17 [Last Taken Unknown] Apixaban [Eliquis] 5 mg PO BID 30 Days #60 tab 09/26/17 [Last Taken Unknown] Furosemide [Lasix 20 MG (*)] 20 mg PO DAILY 30 Days #45 tab 09/26/17 [Last Taken Unknown] Metoprolol Tartrate [Lopressor 25 mg (*)] 12.5 mg PO BID #90 tab 09/26/17 [Last Taken Unknown] Potassium Cl [Klor-Con 10 meq (RX)] 10 meq PO DAILY 30 Days #45 tab 09/26/17 [ Last Taken Unknown] traMADol [Ultram 50 mg (*)] 50 - 100 mg PO Q4HRS PRN #50 tab 09/26/17 [Last Taken Unknown] Temp Pulse Resp BP Pulse Ox 37.0 C 77 15 114/71 93 09/26/17 15:47 09/26/17 15:47 09/26/17 15:47 09/26/17 15:47 09/26/17 15:47 O2 (L/minute) 1 Physical Exam on Discharge: General Appearance: WD/WN, alert, no apparent distress Neck: supple Respiratory: lungs clear, decreased breath sounds (L>R), other (No wheezing, rhochi, rales. ) Cardiac/Chest: regular rate, rhythm (No murmurs, rubs, gallops. Sternum stable. Sternotomy c/d/i. ) Abdomen: normal bowel sounds, non-tender, soft Skin: normal color, warm/dry Extremities: other (Warm, mild lower extremity edema) Neuro/Psych: alert, normal mood/affect, oriented x 3 Discharge Instructions: Call [facility] cardiac rehab to enroll in phase 2 classes if not already arranged. Sternal precautions x 4 weeks. Avoid lifting > 10lbs with an outstretched arm. Avoid push/pull/lifting activities. No driving until cleared by surgery. Elevate low legs at rest. Avoid prolonged standing or dangling. Cleanse wounds once daily with soap and water. Avoid immersion (pool, hot tub, bath) until scabs/glue off. Ok to leave all wounds open to air. Avoid creams or ointments until scabs/glue fall off. Log daily vital signs once home: weight, heart rate, blood pressure, and pulse oximetry if on oxygen. Call [facility] for overnight weight gain > 2lbs, weekly gain > 5lbs or worsening leg swelling. Call [facility] for resting heart rate > 140 OR for systolic blood pressure consistently < 90 or > 140. Target oxygen saturation > 89%. Ok to use [id number] medications for bowel function. Follow up Appointments: 1. Cardiac Surgeon: Dinesh Andrews DO 2. Copier Field Service Technician: Sravanthi Blancas MD Code Status: Full
== END 2017-09-26 17:07 | disposition home or self-care (01) | DRG 228 ==
LOC: FCATH 07:34 → F2W 09:36 → F2N 09-22 12:18 → F2W 09-23 13:52
PROVIDERS: ADMIT Thoracic Surgery (Cardiothoracic Vascular Surgery); ATTEND Thoracic Surgery (Cardiothoracic Vascular Surgery)
DX: I25.10 Atherosclerotic heart disease of native coronary artery without angina pectoris (principal); I71.00 Dissection of unspecified site of aorta; D62 Acute posthemorrhagic anemia; E78.5 Hyperlipidemia, unspecified; I48.0 Paroxysmal atrial fibrillation; E87.79 Other fluid overload; N20.0 Calculus of kidney; Z72.89 Other problems related to lifestyle
CPT/HCPCS: 82435-PO; 82565-PO; 82947-PO; 84132-PO; 84295-PO; 84520-PO; 85014-PO; 97116-GP; 97161-GP; 97166-GO; 97530-GP; 97535-GO; C1753; C1769; G8978-GP-CJ; G8979-GP-CI; G8987-GO-CJ; G8988-GO-CI; G8989-GO-CI; J0153; J0282; J0330; J0690; J1265; J1644; J1815; J1940; J2001; J2150; J2250; J2260; J2370; J2405; J2440; J2704; J2720; J2930; J3010; J3475; J3480; J7060; P9041; Q9967

== ENCOUNTER → 2017-10-06 | Outpatient (CLI) | payer OTHER | LOC: FIMAGING 09:55 | PROVIDERS: ATTEND Thoracic Surgery (Cardiothoracic Vascular Surgery) | DX: Z48.812 Encounter for surgical aftercare following surgery on the circulatory system (principal); Z95.1 Presence of aortocoronary bypass graft; J90 Pleural effusion, not elsewhere classified ==